=== PATIENT | female | born 1965 | race Caucasian/White ===

== ENCOUNTER 2018-07-07 08:28 | Day surgery (SDC) | payer OTHER, SELFPAY ==
[2018-07-07 08:38] VITALS: BP 111/76; PULSE 58; RESP 14; TEMP 36.3; O2SAT 100; BMI 28.0
--- NOTE | 2018-07-07 09:13 | H&P.OPEN ---
Past Medical/Surgical History - Planned Operation Planned Operative Procedure/s: cscope open access Date of Operative Procedure: 07/07/18 Permit Signed: No S.O.S: No Is This Patient Having a Total Joint: No - Previous Hospitalizations/Surgeries HX Hospitalizations: No HX of Surgeries: VAGINAL DELIVERIES [id number], OOPHORECTOMY 2006OOPHORECTOMY 2008LEFT BREAST BIOPSY 2005BREAST AUGMENTATION 2007LEFT SAPHENOUS VEIN STRIPPED 1988. MICROFRACTURE SURGERY LEFT KNEE 11/16 (DR. EDWARDS). left knee patellar revision 2014. laser gum surgery 2016,2017 Any Problems With Anesthesia: Yes - NAUSEA You/Your Family Experience Fever (Hyperthermia) With Anes: No Cholinesterase deficiency: No - Cardiovascular Hx Chest Pain within Last 2 months: No Hx of Irregular Heartbeat and/or Afib: No Hx Heart Attack: No Hx Congestive Heart Failure: No Hx Rheumatic Fever: No Hx Hypertension: No Hx Internal Defibrillator: No Hx Pacemaker: No Hx Cardiac Catheterization: No Hx Cardiac Surgery/Stents/Etc.: No Hx Stress Test: Yes - ECHO 2011. NEG HX Edema: No Hx Pain in Legs when Walking/Leg Cramps: No - . - Respiratory Chronic Cough: No HX of Shortness of Breath: No Hoarseness: No Hx Chronic Obstructive Pulmonary Disease (COPD): No Hx Asthma: No Hx Emphysema: No Hx Sleep Apnea: No CPAP: No BIPAP: No Hx Oxygen Use at Home: No Hx Respiratory Tract Infection/Cold (presently): No Do You Snore Loudly (louder than talking or can be heard): No Do You Often Feel Tired/ Fatigued/ Sleepy Dring Daytime?: No Has Anyone Observed You Stop Breathing During Sleep?: No Result (for STOP score): Negative Hx Smoking: No Smoking Status: Never smoker - Gastrointestinal Hx Gastroesophageal Reflux: No Hx Gastrointestinal Disorders: No Hx Gastrointestinal Bleed: No Hx Ulcer: No Hx Hiatal Hernia: No Difficulty Chewing/Swallowing: No Special diet followed at home: No Hx Unplanned Weight Loss of 20#: No HX Unplanned Weight Gain of 20#: No - Neurological Hx Seizures: No HX Syncope/Blackout Spells/Unconsciousness: No Hx CVA/Stroke: No Hx Transient Ischemic Attacks (TIA): No Hx Multiple Sclerosis: No Hx Parkinson's Disease: No Hx Head/Neck Injury: No Hx Headaches: No Hx Back Injury/Pain: No Recent Onset of Speech Difficulty: No Restless Legs: No Does patient have nerve stimulator: No - Blood Disorder Hx Leukemia: No Bleeding Tendencies: No Hx Deep Vein Thrombosis: No Hx High Cholesterol: No Blood Transmitted Disease: No Hx Hepatitis: No Hx Cirrhosis: No Hx Anemia: No Hx Blood Disorders: No - Reproduction Is Patient Lactating: No Hx Hysterectomy: Yes Hx Tubal Ligation: No Are You Post Menopause: No - Genitourinary Hx Renal Disease: No - Musculoskeletal Hx Arthritis: Yes - KNEE Hx Rheumatoid Arthritis: No Hx Gout: No Recent Onset of an Orthopedic Problem: No - . - Endocrine Hx Diabetes: No Thyroid Disease: No Hx Steroid Therapy: No - Psycho/Social Hx Substance Use: No Hx Alcohol Use: Yes - social Hx Anxiety: No Hx Depression: No Mental Illness: No Hx Dementia: No - Miscellaneous Hx Cancer: No Recent Exposure to Contagious Disease: No Active MRSA: No Hx of C-Diff: No Any Loose Teeth: No Allergies Sulfa (Sulfonamide Antibiotics) Allergy (Verified 09/29/15 11:20) Rash - Discharge Is Pt Admitted From a Long-Term, or a Senior Living: No Who Could Help: family After D/C, Where Do you Plan to Go: Return Home - Physical Exam General: Alert, Oriented x3, Cooperative Lungs: Normal air movement Cardiovascular: Regular rate, Regular Rhythm Abdomen: Soft, Non Tender, Non-Distended Vital Signs Temp Pulse Resp BP Pulse Ox 97.4 F L 58 L 14 111/76 100 07/07/18 08:38 07/07/18 08:38 07/07/18 08:38 07/07/18 08:38 07/07/18 08:38 Oxygen Delivery Method Room Air Weight: 201 lb 8.04 oz Body Mass Index (BMI) 28.0 Assessment/Plan 53-year-old female for screening colonoscopy 1. Patient reports she has never had a colonoscopy in the past. She has no family history of colon cancer. She is not having any abdominal pain or blood in her stool. 2. I explained endoscopy in detail to the patient. I explained the risks including but not limited to stroke or heart attack with anesthesia, perforation of the GI tract, bleeding, infection. I explained that any of these could necessitate further emergency surgery. The patient understands and all questions were answered sufficiently. The patient wishes to proceed with procedure. Dashawn Garcia MD Pager: [facility] [address] [place] [address], [address] [place] [address] Office: Surgery Risks - Colonoscopy Risks Include but are not Limited To: Risks include but are not limited to: Bleeding, perforation requiring further surgery, inability to complete colonoscopy requiring barium enema.
[2018-07-07 09:48] VITALS: BP 111/76; BP 88/56; PULSE 75; RESP 16; TEMP 36; O2SAT 100
[2018-07-07 09:50] VITALS: BP 101/62; BP 111/76; PULSE 76; RESP 16; O2SAT 100
--- NOTE | 2018-07-07 09:51 | OP.ENDO_ITS ---
Patient Name: Stacy Mclaughlin Procedure Date: 07/07/2018 9:15 AM Date of : 1965 Age: 53 Procedure: Colonoscopy Indications: Screening for colorectal malignant neoplasm Providers: Dashawn Garcia MD Medicines: Monitored Anesthesia Care Patient Profile: Last Colonoscopy: none. The patient's first colonoscopy is today. Complications: No immediate complications. Procedure: Pre-Anesthesia Assessment: - Prior to the procedure, a History and Physical was performed, and patient medications and allergies were reviewed. The patient's tolerance of previous anesthesia was also reviewed. The risks and benefits of the procedure and the sedation options and risks were discussed with the patient. All questions were answered, and informed consent was obtained. Prior Anticoagulants: The patient has taken no previous anticoagulant or antiplatelet agents. After reviewing the risks and benefits, the patient was deemed in satisfactory condition to undergo the procedure. After I obtained informed consent, the scope was passed under direct vision. Throughout the procedure, the patient's blood pressure, pulse, and oxygen saturations were monitored continuously. The colonoscope was introduced through the anus and advanced to the terminal ileum, with identification of the appendiceal orifice and IC valve. The colonoscopy was performed without difficulty. The patient tolerated the procedure well. The quality of the bowel preparation was good. Scope In: 9:25:27 AM Scope Withdrawal Time 0 hours 8 minutes 9 seconds Scope Out: 9:42:08 AM Total Procedure Duration Time 0 hours 16 minutes 41 seconds Findings: The entire examined colon appeared normal on direct and retroflexion views. Impression: - The entire examined colon is normal on direct and retroflexion views. - No specimens collected. Recommendation: - Discharge patient to home. - Resume previous diet. - Continue present medications. - Repeat colonoscopy in 10 years for screening purposes. Procedure Code(s): --- Professional --- 43325, PT, Colonoscopy, flexible; diagnostic, including collection of specimen(s) by brushing or washing, when performed (separate procedure) Diagnosis Code(s): --- Professional --- Z12.11, Encounter for screening for malignant neoplasm of colon CPT copyright 2017 [employer]. All rights reserved. The codes documented in this report are preliminary and upon caseworker review may be revised to meet current compliance requirements. Dashawn Garcia MD 07/07/2018 9:50:48 AM This report has been signed electronically. Number of Addenda: 0 Note Initiated On: 07/07/2018 9:15 AM
[2018-07-07 09:55] VITALS: BP 111/76; BP 97/66; PULSE 75; RESP 16; O2SAT 100
[2018-07-07 09:57] VITALS: BP 101/63; BP 111/76; PULSE 69; RESP 16; TEMP 36.3; O2SAT 100
[2018-07-07 10:30] VITALS: BP 111/76
== END 2018-07-07 10:34 | disposition home or self-care (01) ==
LOC: EN 08:30 → AC 08:31
PROVIDERS: Family Provider Family Medicine; PCP Family Medicine; Visit Provider Surgery
PROC: 0DJD8ZZ Inspection of Lower Intestinal Tract, Via Natural or Artificial Opening Endoscopic (ICD-10-PCS; CPT 45378; principal; 2018-07-07 09:25)
DX: Z12.11 Encounter for screening for malignant neoplasm of colon (principal); M17.10 Unilateral primary osteoarthritis, unspecified knee
CPT/HCPCS: 45378; J7120

== ENCOUNTER → 2019-01-02 09:42 | Outpatient (CLI) | payer OTHER, SELFPAY ==
[2018-12-27 11:02] VITALS: BMI 27.1
--- NOTE | 2019-01-02 09:43 | BD_ITS ---
STUDY: DUAL ENERGY X-RAY ABSORPTIOMETRY / DXA REASON FOR EXAM: Female, 53 years old. Early menopause. Loss of height. TECHNIQUE: Bone Mineral Density (BMD) measurements of lumbar spine and bilateral hips were obtained. COMPARISON: None. FINDINGS: Lumbar Spine (L1-L4): g/cm2 (1.078) / T-score (-0.7) / Z-score (0.0) Findings are suggestive of normal bone density with a low fracture risk. Left Femur Total: g/cm2 (0.907) / T-score (-0.8) / Z-score (-0.2) Left Femoral Neck: g/cm2 (0.916) / T-score (-0.9) / Z-score (0.1) Right Femur Total: g/cm2 (0.884) / T-score (-1.0) / Z-score (0.4) Right Femoral Neck: g/cm2 (0.894) / T-score (-1.0) / Z-score (-0.1) BD/Dexa Bone Density Study IMPRESSION: The patient is considered normal as outlined below according to World [place] Organization (WHO) criteria with a low fracture risk. Reference Information: The T-score is the number of standard deviations above or below the standard which is normal for young adults at their peak bone mineral density. The World Health Organization (WHO) interprets the T-scores as follows: Above -1 Normal bone density Between -1 and -2.5 Osteopenia Equal to / or below -2.5 Osteoporosis As a practical clinical guideline, osteopenia may be graded as follows: Mild -1 through -1.5 Moderate -1.6 through -2.0 Severe -2.1 through -2.4 The Z-score is the number of standard deviations above or below age-matched controls. A Z-score of less than -1.5 would be considered abnormal. References: 1. NIH Osteoporosis and Related Bone Diseases http://www.osteo.org 2. International Society for Clinical Densitometry http://www.iscd.org 3. National Osteoporosis Foundation http://www.nof.org Electronically Signed: Tyler Phillips, at 15:26 EDT , Service support ,
--- NOTE | 2019-01-02 10:17 | RAD_ITS ---
STUDY: X-RAY - LEFT HAND, ATTENTION INDEX FINGER REASON FOR EXAM: Mucous cyst/ganglion at distal interphalangeal joint, pain for 2 months. TECHNIQUE: 3 view(s) of the finger were obtained. COMPARISON: None. FINDINGS: Normal metacarpal head. Normal metacarpophalangeal joint. Normal proximal phalanx. Normal middle phalanx. Normal distal phalanx. There are very small marginal osteophytes of the proximal interphalangeal without joint space narrowing. There are very small marginal osteophytes without joint space narrowing of the distal interphalangeal joint. There is a small pericapsular calcification at the ulnar aspect of the proximal interphalangeal joint. RAD/Finger(s) Min 2 Views IMPRESSION: Very small marginal osteophytes of the proximal and distal interphalangeal joints. Small pericapsular calcification of the proximal interphalangeal joint. Electronically Signed: Nura Gaines MD at 12:30 EDT Tel , Service support ,
== END ==
PROVIDERS: Family Provider Family Medicine; PCP Family Medicine; Referring Provider Family Medicine; Visit Provider Family Medicine
DX: Z13.820 Encounter for screening for osteoporosis (principal); M67.442 Ganglion, left hand
CPT/HCPCS: 73140; 77080

== ENCOUNTER → 2019-01-22 | Outpatient (CLI) | payer OTHER, SELFPAY ==
[2018-12-27 11:02] VITALS: BMI 27.1
--- NOTE | 2019-01-22 15:42 | BI_ITS ---
MAMMOGRAPHY - BILATERAL SCREENING 3-D TOMOSYNTHESIS REASON FOR EXAM: Female, 53 years old. Bilateral Screening 3-D tomosynthesis PERTINENT HISTORY: No significant family history. TECHNIQUE: 2-D mammograms and 3-D Tomosynthesis of the breast (s) were performed. CAD was performed. COMPARISON: November 18, 2015. FINDINGS: The breast composition is composed of scattered fibroglandular density. The bilateral prosthesis envelopes appear intact. Scattered benign calcifications are seen. No dense spiculated masses or suspicious microcalcifications are identified. No architectural distortion is identified. There is no skin thickening or retraction. There has been no significant change since the prior study. BI/SCREENING MAMM (CAD), BILAT IMPRESSION: No mammographic signs of malignancy. Routine yearly mammograms recommended. ASSESSMENT CATEGORY: BIRADS Category 2: Benign. A letter regarding these results will be sent to the patient by the facility within 30 days. FOLLOW UP RECOMMENDATION: Yearly follow up mammogram recommended. (A) Approximately 10% of breast cancers are not detected by mammography. A normal mammogram should not delay biopsy of a clinically suspicious abnormality. Electronically Signed: Wilfrid Barrientos MD at 17:01 EDT , Service support ,
== END | disposition home or self-care (01) ==
LOC: OPBI 15:41
PROVIDERS: Family Provider Family Medicine; PCP Family Medicine; Referring Provider Family Medicine; Visit Provider Family Medicine
DX: Z12.31 Encounter for screening mammogram for malignant neoplasm of breast (principal)
CPT/HCPCS: 77063; 77067

== ENCOUNTER 2019-04-03 05:53 | Day surgery (SDC) | payer OTHER, SELFPAY ==
[2018-12-27 11:02] VITALS: BMI 27.1
--- NOTE | 2019-04-02 22:06 | PCM.HP.BLA ---
History and Physical Date of Admission: 04/03/19 HISTORY OF PRESENT ILLNESS 53 year old woman presents with a soft tissue mass on the dorsal ulnar aspect left index finger at the DIP joint that has been increasing in size over the last year. She denies any trauma. She denies any infection. She denies any drainage. She denies any numbness. She denies any nail deformity. The mass is clinically consistent with a mucous cyst. She has no trouble with activities of daily living. She is right hand dominant. She also has a concern about a pigmented lesion on the volar aspect mid right forearm that has also increased in size. She denies any trauma. She denies any bleeding. She states she has a family history of skin cancer. She presents at this time for further evaluation and treatment. PAST MEDICAL HISTORY Breast lump Osteoarthritis PAST SURGICAL HISTORY breast augmentation breast biopsy hysterectomy vein stripping Knee fracture, left ALLERGIES Sulfa (Sulfonamide Antibiotics) MEDICATIONS ibuprofen multivitamin tablet FAMILY HISTORY Mother - Breast cancer, Melanoma, Skin cancer Sister - Breast cancer Grandmother - Breast cancer Brother - Glioblastoma SOCIAL HISTORY Smoking Status: Never smoker alcohol intake: never substance use type: does not use REVIEW OF SYSTEMS General - Denies fever, fatigue, and weight loss. Eyes - Denies cataracts and glaucoma. ENT - Denies nasal congestion and sore throat. Endocrine - Denies excessive thirst and urination. Skin - Denies skin cancer. Has an enlarging mucous cyst dorsal ulnar aspect left index finger at the DIP joint. Has a pigmented lesion volar aspect mid right forearm. Musculoskeletal - Has joint pain, joint stiffness, weakness of muscles and joints, and arthritis. Denies back pain. Neuro - Denies headaches. Cardiovascular - Denies chest pain, fatigue, and shortness of breath with exertion. Psych - Denies anxiety and depression. Respiratory - Denies chronic cough and shortness of breath. Gastrointestinal - Denies nausea, vomiting, diarrhea, and constipation. Hematologic - Denies abnormal bruising and bleeding. Genitourinary - Denies hematuria and urinary frequency. PHYSICAL EXAMINATION General - Alert and Oriented. HEENT - PERRL. EOMI. Throat is clear. No suspicious lesions noted. Neck - Supple and nontender. No cervical adenopathy. No suspicious lesions noted. Lungs - Clear to auscultation. Heart - Regular rate and rhythm. Abdomen - Soft and nondistended. Extremities - FROM. No axillary adenopathy. Radial pulses are palpable. On the dorsal ulnar aspect left index finger at the DIP joint is a soft tissue mass consistent with a mucous cyst. Measures 5 mm. The overlying skin is thinned. No ulceration. No sensory deficits. No nail deformity. Patient can make a fist. Finger extension is intact. Fingers are warm with good capillary refill. On the volar aspect mid right forearm is a 4 mm pigmented lesion. Has various areas of different coloration. Lesion is flat. Has irregular borders. No ulceration. Lesion is nontender. Neuro - CN II-XII grossly intact. Psych - Normal mood and affect. ASSESSMENT 1. 5 mm mucous cyst dorsal ulnar aspect left index finger at the DIP joint. 2. 4 mm pigmented lesion volar aspect mid right forearm. 3. Family history of skin cancer. PLAN Recommend excision of this mucous cyst dorsal ulnar aspect left index finger at the DIP joint. Will send the mass to Pathology for analysis to rule out carcinoma. The x-ray showed very small marginal osteophytes of the proximal and distal interphalangeal joints. Small pericapsular calcification of the proximal interphalangeal joint. At the time of surgery, will remove any bony spurs to minimize recurrence. Also will look underneath the tendon and even on the radial side as well as these masses can wrap around the tendon. May have to splint the finger postop during the healing process to minimize problems with the tendon during healing. By manipulating the tendon to completely remove the mucous cyst, the tendon will be weakened by swelling and inflammation. Since the overlying skin is adherent to the mass and is thinned out, I will remove the overlying skin with the mass. Therefore, with bone and tendon exposed, a skin graft cannot be used for closure. So will close the defect with a dorsal advancement skin flap. Compression dressing will be applied to help with the swelling postop and to help with splinting during the first week. Surgery will be done under local anesthesia and IV sedation with a digital tourniquet. The pigmented lesion on her volar aspect mid right forearm has developed changes in pigmentation and has developed irregular broders. I recommend excision and send the lesion to pathology for analysis to rule out carcinoma. Patient was informed of the risks and complications of the procedure including alternatives to surgery. These were discussed with the patient personally. Patient voices understanding and wishes to proceed. Some of the risks and complications were included in a form from the [employer]. Some of the risks and complications that were discussed included but were not inclusive of failure to diagnose including symptom relief, pain, infection, numbness, stiffness, loss of digit, RSD (CRPS), need for further surgery, contracture, and wound healing problems.
[2019-04-03] VITALS (11 sets, daily range): BP systolic 108–122; BP diastolic 70–86; PULSE 59–78; RESP 15–16; TEMP 36.7; O2SAT 97–100; BMI 28.3
--- NOTE | 2019-04-03 | CYST_PTH ---
PATIENT: GERALDO MIJARES [place] [facility] [place][id number] AGE/SX: 54/F ROOM: RE04/03/[address]: Dr. Amol Holt MD : 1965 BED: DIS: 04/03/2019 SPEC #: [id number] RECD: 04/03/19 14:00 STATUS: THIEN ARELI #: [id number] OREN: 04/03/19 00:[address]: Amol Holt DEPT: SURGICAL PATHOLOGY RECD BY: Billy Everett ENTERED: 04/03/19 14:00 SP TYPE: Cyst OTHR DR: Dr. Mode Ramirez, DO Tissues: A - CYST B - Skin of arm Procedures: Surgery Specimen Level IV HEADER OPERATION: Excision mucous cyst, index finger at DIP joint, skin flap PRE-OP DIAGNOSIS: 5 mm mucous cyst dorsal ulnar aspect left index finger at DIP joint; 4 mm pigmented lesion volar aspect mid right forearm TISSUE SUBMITTED: A - Mucous cyst dorsal ulnar aspect left index finger at DIP joint, B - Pigmented lesion volar aspect mid right forearm MICROSCOPIC DIAGNOSIS A. Mucous cyst dorsal ulnar aspect left index finger at DIP joint: Pieces of skin with hyperkeratosis and focal minimal changes suggestive of mucous cyst. Fragments of bone, cartilage, fibroconnective tissue and synovial tissue with reactive changes B. Pigmented lesion volar aspect mid right forearm, excisional biopsy: Early junctional nevus arising in the background of lentigo. Dermal melanophages. SJ:angel 04/04/19 COMMENT Case has been reviewed in consultation with Dr. Lamb who concurs with the above diagnosis. IDC:AM MICROSCOPIC DESCRIPTION Slides are reviewed. GROSS DESCRIPTION A - Received in fixative is one container labeled with the patient's name and designated mucous cyst dorsal ulnar aspect left index finger at DIP joint. The specimen consists of multiple irregular fragments of light dunaway soft tissue that in aggregate measure 1.5 x 1 x 0.2 cm. Also present in the container is a piece of skin measuring 1 x 0.5 x 0.2 cm. The skin piece is bisected. The entire specimen is submitted in one cassette. B - Received in fixative is one container labeled with the patient's name and designated pigmented lesion volar aspect mid right forearm. The specimen consists of a dunaway-white skin ellipse measuring 1 x 0.5 cm and up to 0.1 cm in thickness. The specimen shows a suture at one tip. The suture half is inked blue and opposite half is inked black. The specimen will be serially sectioned at the time of embedding. / NERY:angel 04/03/19 TC:5 CPT: 94437 x2
[2019-04-03] MEDS: Cefazolin 2 GM in 0.9% Normal Saline 100 ML IV (07:25)
[2019-04-03] MEDS: Mupirocin Ointment 22gm Tube 1 APPLIC (08:45)
--- NOTE | 2019-04-03 09:02 | OP.PCM_ITS ---
Report of Operation Date of Procedure: 04/03/19 Pre-Operative Diagnosis: 1. 5 mm mucous cyst dorsal ulnar aspect left index finger at the DIP joint. 2. 4 mm pigmented lesion volar aspect mid right forearm. 3. Family history of skin cancer. Post-Operative Diagnosis: Same. Surgery/Procedure Performed:: 1. Excision 5 mm mucous cyst dorsal ulnar aspect left index finger at the DIP joint with dorsal skin advancement flap reconstruction (6 cm2). 2. Excision 4 mm pigmented lesion volar aspect mid right forearm with 2 cm layered closure. Description of Surgical Findings:: 53 year old woman presents with a soft tissue mass on the dorsal ulnar aspect left index finger at the DIP joint that has been increasing in size over the last year. She denies any trauma. She denies any infection. She denies any drainage. She denies any numbness. She denies any nail deformity. The mass is clinically consistent with a mucous cyst. She has no trouble with activities of daily living. She is right hand dominant. She also has a concern about a pigmented lesion on the volar aspect mid right forearm that has also increased in size. She denies any trauma. She denies any bleeding. She states she has a family history of skin cancer. Patient was informed of the risks and complications of the procedure including alternatives to surgery. These were discussed with the patient personally. Patient voices understanding and wishes to proceed. Some of the risks and complications were included in a form from the [employer]. Total tourniquet time - 42 minutes. family health nurse practitioner: None Type of Anesthesia:: Local MAC - xylocaine with epinephrine and IV sedation. Specimen's removed: 1. Mucous cyst dorsal ulnar aspect left index finger at the DIP joint to Pathology. 2. Pigmented lesion volar aspect mid right forearm to Pathology. Drains: None. Estimated Blood Loss (mL): 5 ml. Description of Procedure: Patient was taken to OR in supine position and was given IV sedation. The left hand was prepped and draped in the usual fashion. SCD's were placed for DVT pr ophylaxis. Perioperative antibiotics were given intravenously. The left index finger was infiltrated with xylocaine and epinephrine digital metacarpal block for postop pain relief. After waiting 5 minutes for the anesthetic to take effect, I placed a digital tourniquet on the left index finger. Under loupe magnification, I made an incision over the mucous cyst. The skin was adherent. A circular incision was made over the cyst and it was extended horizontally to the radial side of the finger. I dissected down to the extensor tendon which was intact. The mucous cyst extended to the bone at the DIP joint. There was extension of the mucous cyst underneath the extensor tendon to the radial side. Once the mucous cyst was excised, there was osteophytes at the DIP joint. Using a rongeur, I excised the osteophytic spurs on both the ulnar side and the radial side of the DIP joint. The cyst and the bone was sent to Pathology for analysis to rule out carcinoma. Because the wound extended down to the bone and tendon, a skin graft cannot be used. Therefore I made markings down the ulnar side of the finger past the PIP joint. Incisions were made and dissection was carried down to the extensor tendon. I was able to advance the dorsal skin flap into the defect with minimal tension and minimal distortion. The wound was irrigated with saline. The tourniquet was released after 42 minutes. Hemostasis was obtained with electrocautery. No vascular compromise was noted on the skin flap. I then closed the dorsal skin flap in a layered fashion with 5-0 Monocryl interrupted sutures for the deep dermis and subcutaneous tissue. The skin was approximated with 5-0 Nylon simple interrupted sutures. Antibiotic ointment was applied to the suture line followed by Xeroform gauze and 2x2 gauze followed by a 2 inch Chuy wrap. I then prepped and draped the right volar forearm in the usual fashion. Using xylocaine and epinephrine, the pigmented lesion on the volar aspect mid right forearm was infiltrated. After waiting 5 minutes for the anesthetic to take effect, I excised the pigmented lesion in a longitudinal elliptical fashion down into the subcutaneous tissue. I excised the lesion with a 1 mm margin in all directions thus making it a 6 mm excision and a 2 cm layered closure. A suture was marked at the 12 oclock position for pathology orientation. The lesion was sent to pathology for analysis to rule out carcinoma. Hemostasis was obtained with electrocautery. The wound was closed in a layered fashion with 5-0 Monocryl interrupted sutures for the deep dermis and subcutaneous tissue. The skin was approximated with 5-0 Nylon simple interrupted sutures. Antibiotic ointment was applied to the suture line followed by 2x2 gauze and a compression inocente wrap. Patient tolerated the procedure well and was sent to PACU in satisfactory condition. Patient will be sent home on antibiotics and pain medication. She will keep her arms elevated when sitting. Patient will followup in a week for a wound check and for discussion of the pathology report. Will remove the sutures from the right forearm in a week and the left index finger in 2 weeks. After sutures removed, if she develops some stiffness in the left index finger, she may need OT for range of motion exercises. Grafts/Implants Used: None. - Complications None. - Admit VTE Documentation VTE Present on Admission: No VTE Mechan Device Prophylaxis: SCD's VTE Pharm Prophylaxis ordered?: No Code Visit Surgery Charges CPT - 22012 ICD-10 - M67.442, Z80.8 69593 M67.442, Z80.8 58843 D49.2, Z80.8 58059 D49.2, Z80.8
--- NOTE | 2019-04-03 09:12 | DCINST_ITS ---
You will use the following diet at home:: No restrictions Discharge Activity: May not drive while taking narcotic pain medications., May Shower - in two days. Wear plastic bag over left hand when showering., - - elevate left hand. no heavy lifting left hand. Return to work on:: 06/03/19 - tentative May shower in (days): 2 - wear plastic bag over left hand when showering. May resume sexual activity in: No Restrictions Weight Bearing Status: Weight bearing as tolerated Lifting Restrictions: 10 lbs. Keep extremity elevated above heart level: Left Arm Call your doctor if your incision/area has: Continuous Slow Oozing, Sudden Increased Bleeding, Increased Pain/ Swelling, Increased Redness, Foul Smelling Discharge, Swelling at the incision site Call your doctor if you observe: Fever of 101 or Higher, Coldness, Increased Pain, Shortness of breath, Chest pain, Calf discomfort, Uncontrolled pain Suture Line Care: - - after dressings removed, apply antibiotic ointment to suture line daily. Change Dressing in (Days):: 7 - left hand in office. Remove Dressing in (days):: 2 - right forearm. Cleanse incision/area with: - - may shower in two days. wear plastic bag over left hand when showering. Allergies/Adverse Reactions: Allergies Sulfa (Sulfonamide Antibiotics) Allergy (Verified 04/03/19 06:13) Rash Medications to take at Discharge multivitamin tablet 1 tab PO DAILY 12/27/18 Cefadroxil [Duricef] 500 mg PO BID #10 cap 04/03/19 Lactobacillus Acidophilus/Fos [Acidophilus Probiotic Tablet] 1 ea PO BID #10 tab 04/03/19 Oxycodone HCl/Acetaminophen [Percocet 5/325] 1 tab PO Q4H PRN PRN 7 Days #40 tab 04/03/19 The following prescriptions were given: Lactobacillus Acidophilus/Fos [Acidophilus Probiotic Tablet] 1 ea PO BID #10 tab Prescription Printed Cefadroxil [Duricef] 500 mg PO BID #10 cap Prescription Printed Oxycodone HCl/Acetaminophen [Percocet 5/325] 1 tab PO Q4H PRN PRN 7 Days #40 tab PRN Reason: Pain Prescription Printed Primary Care Physician: Mode Ramirez DO [Primary Care Provider] - Test Results: Test results from this visit will be discussed in further detail at your follow- up appointment, if applicable. Please Follow Up With: Amol Holt MD When: one week. call [phone] for appt. Proposed Discharge Date: 04/03/19
== END 2019-04-03 11:26 | disposition home or self-care (01) ==
LOC: SDC 05:53 → AC 05:54
PROVIDERS: Family Provider Family Medicine; PCP Family Medicine; Referring Provider Surgery; Visit Provider Surgery
PROC: (CPT 11400; principal; 2019-04-03 07:20)
DX: D22.61 Melanocytic nevi of right upper limb, including shoulder (principal); M25.842 Other specified joint disorders, left hand; L81.4 Other melanin hyperpigmentation; Z80.8 Family history of malignant neoplasm of other organs or systems; M19.90 Unspecified osteoarthritis, unspecified site; L85.9 Epidermal thickening, unspecified; L81.8 Other specified disorders of pigmentation; M25.742 Osteophyte, left hand
CPT/HCPCS: 11400; 12031; 14020; 26160; 88304; 88305; J7120; J2405

== ENCOUNTER 2019-07-30 16:30 | Outpatient (RCR) | payer OTHER, SELFPAY ==
[2019-05-17 16:47] VITALS: BMI 28.3
--- NOTE | 2019-05-25 11:04 | HP.OTEVAL_ITS ---
Patient's Visit Information GERALDO MIJARES is a 54 year old F, referred to Occupational Therapy by Amol Holt MD, with a diagnosis of left IF ganglion cyst. Date of Evaluation: 05/25/19 Occupational Therapist: SANYA Eubanks/Mariya, CHT - Subjective Subjective: This 54 year old female was seen for OT eval with dx of left IF gangllion cyst. pt underwent sx on April 03, 2019 for removal. Pt states she has noticed limited strength and inability to make a tight fist. - ADLs Fasteners: Snaps Eating: Drink from glass Kitchen: Open jars, Open bottle caps Miscellaneous: Open medication bottle, Use hand tools, Do crafts Comments: pt states hand feels weak when lifting items as a coffee cup. 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 with ADLs and IADLS by d/c Goal:: pt will demo the ability to form a composite fist to manipulate fastenders ind without dropping, hold cup ind, and manipulate coins at PLOF by D/C Goal:: pt will report pain no greater than 1/10 with use of left hand with ADLS and IADLs by d/c Goal:: pt will demo understanding of scar mtg by end of 1st session to decrease scar adhesions by end of 1st session Goal:: pt will demo ind. donning/doffing of custom orthosis by end of 1st session, and knowledge to return to clinic for orthosis adj. if needed by end of 1st session . - Rehabilitation General Assessment: Digital mucous cyst of finger of left hand. S/P 7 weeks (04/03/19 DOS) where she underwent excision 5 mm mucous cyst dorsal ulnar aspect left index finger at the DIP joint. 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 Due to pts current deficits with ROM and strength pt is limited with daily occupations at this time. Pt would benefit from skilled OT services 2-4 visits to assist pt with returning to her PLOF with ADLS and IADLS. Today therpist maria isabel. custom stack orthosis placing left IF in hyperextensoin- pt ed. to wear at night and to return if orthosis needs adj. therpist also ed. pt on scar mtg to decrease scar adhesions and hook fist to gain left IF PIP flex. pt demo understanding and agree to POC. Rehabilitation Potential: Good - Anticipated Interventions Anticipated Interventions: A/AAROM/PROM, Strengthening, Scar Care, Triggerpoint Release, Desensitization, Modalities, Orthoses, Joint Protection/Energy Conservation, Ergonomic Education, Fine Motor Coord/Roger, Home Program - Visit Plan Frequency: Every Other Week Duration: 4-6 Weeks TEXT: Thank you for the opportunity to evaluate your patient. For Medicare and Medicare HMO plans, please review the plan of care and approve it. It will need to be FAXED BACK to us at [phone] for Medicare purposes. Please let me know if there are questions or concerns regarding this plan of care. Physician Signature: Date:
--- NOTE | 2019-10-17 10:29 | HP.OT.NRP ---
HP - Discharge Summary - Patient Information GERALDO MIJARES was seen in my office for initial evaluation on 05/25/19. The following Plan of Care was established for this patient: Initial Frequency: Every Other Week Initial Duration: 4-6 Weeks Plan: follow up in 4 weeks - Anticipated Interventions Anticipated Interventions: A/AAROM/PROM, Strengthening, Scar Care, Triggerpoint Release, Desensitization, Modalities, Orthoses, Joint Protection/Energy Conservation, Ergonomic Education, Fine Motor Coord/Roger, Home Program This patient was last seen in our office 07/30/19. Pertinent comments regarding their Occupational therapy will appear below: Pt was seen for 3 OT visits- pt struggling with DIP lag from ganglion cyst sx. pt was ed. in orthosis use to decrease ext. lag- pt was to return in 4 weeks following last scheduled apt. pt has not scheduled and due to time lapse in care pt d/c. At this point I will be discontinuing this patient from occupational therapy. I would be happy to see this patient again in the future if found appropriate by the physician. Thank you! [place]ia Wolf, OTR/L, CHT
== END 2019-07-30 19:00 | disposition home or self-care (01) ==
LOC: OT 16:30
PROVIDERS: Family Provider Family Medicine; PCP Family Medicine; Referring Provider Surgery; Visit Provider Surgery
DX: M67.442 Ganglion, left hand (principal)
CPT/HCPCS: 97110; 97140; 97166; 97530; 97760; 97763

== ENCOUNTER → 2019-08-08 10:30 | Outpatient (CLI) | payer OTHER, SELFPAY ==
[2019-05-17 16:47] VITALS: BMI 28.3
--- NOTE | 2019-08-08 10:33 | RAD_ITS ---
STUDY: X-RAY - LUMBAR SPINE REASON FOR EXAM: Female, 54 years old. Low back pain radiating down left lower extremity TECHNIQUE: 5 view(s) of the lumbar spine were obtained. COMPARISON: Prior study of November 26, 2014 FINDINGS: Normal lumbar lordosis. There is no substantial scoliosis. There is a normal alignment of the vertebrae. There is mild endplate spondylosis of the lumbar vertebrae. Normal disc space heights. There is no demonstrated fracture. There is no demonstrated spondylolysis of the pars interarticulares. The soft tissue structures are unremarkable. RAD/L/S Spine Min 4 Views IMPRESSION: Mild degenerative changes. There is no evidence of fracture, spondylolysis, or spondylolisthesis. Findings are similar to the previous study. Electronically Signed: Hilario Islas MD at 17:08 EST , Service support ,
== END ==
PROVIDERS: Family Provider Family Medicine; PCP Family Medicine; Referring Provider Family Medicine; Visit Provider Family Medicine
DX: M54.17 Radiculopathy, lumbosacral region (principal)
CPT/HCPCS: 72110

== ENCOUNTER → 2019-08-28 07:31 | Outpatient (CLI) | payer OTHER, SELFPAY ==
[2019-08-22 16:23] VITALS: BMI 28.3
[2019-08-28 08:53] LABS: Absolute Lymphocyte Count 0.95 X10^3/uL (0.83-4.51); Absolute Neutrophil Count 2.4 X10^3/uL (2.0-7.7); Basophil# 0.02 X10^3/uL; Basophil% 0.5 % (0-1); Eosinophil# 0.12 X10^3/uL; Eosinophils% 3.1 % (0-5); Hematocrit 43.8 % (37-47); Hemoglobin 14.1 g/dL (12.0-15.0); Lymphocyte # 0.95 X10^3/ul (4.0); Lymphocyte % 24.9 % (19-41); Mean Corp Hgb Conc 32.2 g/dL (32-36); Mean Corpuscular Hgb 30.2 pg (27.0-32.0); Mean Corpuscular Volume 93.8 fL (81-99); Mean Platelet Vol. 10.3 fl (6.2-12.0); Monocyte# 0.36 X10^3/uL; Monocyte% 9.4 % (0-10); NRBC Flagged by Analyzer 0 % (0-5); Neutrophil # 2.36 X10^3/uL (2.7-7.7); Neutrophil % 61.8 % (47-70); Platelet Count 190 K/mm3 (150-450); RBC Distribution Width CV 14.2 % (11.6-14.6); RBC Distribution Width SD 49.3 fl (35.1-43.9); Red Blood Count 4.67 M/mm3 (4.2-5.4); White Blood Count 3.8 K/mm3 (4.4-11.0)
[2019-08-28 09:20] LABS: Vitamin D,25 Hydroxy 15.5 ng/mL (29.95-100.01)
[2019-08-28 09:29] LABS: ALB/GLOB Ratio 1.3 RATIO (0.9-2.4); AST(SGOT) 25 U/L (15-37); Alanine Aminotransfer ALT/SGPT 46 U/L (13-56); Albumin, Serum 4.3 g/dL (3.2-5.0); Alkaline Phosphatase 79 U/L (45-117); Anion Gap 7 (5-15); BUN 14 mg/dL (7-18); BUN/Creat Ratio 19.4 RATIO (10-20); Calcium,Total 9.2 mg/dL (8.5-10.1); Chloride 105 mmol/L (98-107); Cholesterol 217 mg/dL (200); Creatinine, Serum 0.72 mg/dL (0.55-1.02); EST Glomerular Filtration Rate 89 mL/min (>60); Est Glom Filt Rate - Afr Amer 108 mL/min (>60); Free T3 3.3 pg/mL (2.18-3.98); Globulin 3.2 g/dL (2.2-4.2); Glucose 88 mg/dL (74-106); High Density Lipoprotein 108 mg/dL; Iron 91 ug/dL (50-170); Iron Binding Capacity,Total 390 ug/dL (250-450); Potassium 4.1 mmol/L (3.5-5.1); Protein, Total 7.5 g/dL (6.4-8.2); Sodium Level 139 mmol/L (136-145); Thyroid Stim Hormone (TSH) 1.96 uIU/mL (0.358-3.74); Triglycerides 46 mg/dL; Very Low Density Lipoprotein 9 mg/dL (5-40)
[2019-09-03 12:06] LABS: T3 Reverse 15.5 ng/dL (9.2-24.1); Thyroglobulin Antibody 2.8 IU/mL (0.0-0.9); Thyroid Peroxidase AB 86 IU/mL (0-34)
== END ==
PROVIDERS: Family Provider Family Medicine; PCP Family Medicine
DX: E03.9 Hypothyroidism, unspecified (principal); D64.9 Anemia, unspecified; E44.1 Mild protein-calorie malnutrition; E78.5 Hyperlipidemia, unspecified; E55.9 Vitamin D deficiency, unspecified
CPT/HCPCS: 36415; 80053; 80061; 82306; 83540; 83550; 84439; 84443; 84481; 84482; 85025; 86376; 86800

== ENCOUNTER 2019-09-13 17:00 | Outpatient (RCR) | payer OTHER, SELFPAY ==
[2019-05-17 16:47] VITALS: BMI 28.3
[2019-08-22 16:23] VITALS: BMI 28.3
--- NOTE | 2019-08-23 16:31 | HP.PTEVAL ---
Patient's Visit Information GERALDO MIJARES is a 54 year old F referred to Physical Therapy by Mode Ramirez DO with a diagnosis of LUMBAR RADICULOPATHY. Date of Evaluation: 08/23/19 Physical Therapist: Amol Wells PT, Cert MDT, OCS - Visit Plan Frequency: 2x /Week Duration: 4 Weeks Plan: PT INTERVETIONS INTIALLY NEUTRAL SPINE DLS,ASSESS KENNEDY EX'S,POSTURAL EX'S,DLS - Subjective Findings: This 54 y/o female presenst to physical therapy with sciatica pain left leg . Patient has left lumbar radiculopathy for 2 months. Tried predisone for 10 days then symptoms worse . Then seen DR montejo,gabepetin improved better. Patient worse after stopped MEDS. Patient also seen chiropractor thought piriformis. Aggravating sitting,bending sleeping,driving . Aleviating factors with standing . Location buttuck -hamstring -calf ache.Walkikng NW/NB. Denies parathesia/tingling ,altough left leg feels. Coughing/sneezing -. Bowel/bladder-.Denies parathesia/tingling. Difficulty sleeping. Patient x-rays DDD . 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 Patient h/o trauma. Patient did have h/o sciatica. Patient pain affects QOL and function. 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 SOCIAL: - Pain Left Lower Extremity Pain Intensity (Out of 10): 2 - Objective POSTURE: mild foward posture. GAIT: reciprocal pattern. NEURO: denies parathesia/tingling reflexes 2/3 L3-4,L4-5,L4-S1. SYMMTRIES: align. FLEXABLITY: hams WFL,piriformis WNL. MMT: quads/hams 4/5 ,hip flexion/abd 4/5,GTE 4/5,ankle DF 4/5. LUMBAR ROM: felxion MIN loss ,extension min loss - Special Tests L/S Slump test left side: Positive L/S Slump test right side: Negative L/S Left Straight Leg Raise: Negative L/S Right Straight Leg Raise: Negative Lumbar Standing: Flexion - Mechanical Response: No effect Lumbar Standing: Flexion - Symptoms During Testing: No effect Lumbar Standing: Flexion - Symptoms After Testing: No effect Lumbar Standing: Extension - Mechanical Response: No effect Lumbar Standing: Extension - Symptoms During Testing: No effect Lumbar Standing: Extension - Symptoms After Testing: No effect Lumbar Standing: Right Side Glides - Mechanical Response: No effect Lumbar Standing: Right Side Lynn - Symptoms During Testing: No effect Lumbar Standing: Right Side Lynn - Symptoms After Testing: No effect Lumbar Standing: Left Side Lynn - Mechanical Response: No effect Lumbar Standing: Left Side Lynn - Symptoms During Testing: No effect Lumbar Standing: Left Side Lynn - Symptoms After Testing: No effect Lumbar Lying: Flexion - Mechanical Response: No effect Lumbar Lying: Flexion - Symptoms During Testing: Increases Lumbar Lying: Flexion - Symptoms After Testing: No worse Lumbar Lying: Extension - Mechanical Response: No effect Lumbar Lying: Extension - Symptoms During Testing: Increases Lumbar Lying: Extension - Symptoms After Testing: Worse Comments:: buttuck - Goals Goal 1:: Independant with HEP. Goal Time Frame: 4-6 Weeks Goal 2:: Independant with posture/body mechanics to manage symptoms Goal Time Frame: 4-6 Weeks Goal 3:: Patient to decrease lumbar radiculopathy by 50% or > to improve function. Goal Time Frame: 4-6 Weeks Goal 4:: Patient to improve lumbar ROM for function of recovery Goal Time Frame: 4-6 Weeks Goal 5:: Patient to improve BACK OWESTY score by 5 points or> to improve QOL. Goal Time Frame: 4-6 Weeks Goal 6:: D/C To prophalaxis. Goal Time Frame: 4-6 Weeks - Rehabilitation Potential Physical Therapy Diagnosis: This patient has lumbar radiculpathy with possble disc derrangement with pain with lumbar ROM ,pain in buttuck with repeated motion and movement tests with symptoms slightly worse in buttuck ,pain at night thus benifit from skilled PT. May benifit from MRI if not better. Rehabilitation Potential: Good - Anticipated Interventions Patient/Client Instruction: Educate patient on: Condition, Plan of Care For the Purpose of:: To decrease pain, To increase ROM, To improve muscle performance and motor function, To improve ability to perform ADL's, To increase tolerance to activity/condition/position, To improve ability of physical actions for home/community/work/leisure, To improve health of tissue, To decrease soft tissue restriction, To increase flexibility/ROM, To reduce risk of recurrence, To improve self management, To improve ability to perform tasks related to life management Therapeutic Exercise to Include: Strength training, Power training, Postural training, Flexibilty training, Dynamic Lumbar Stabilization, Kennedy Exercises For the Purpose of:: To decrease pain, To increase ROM, To improve muscle performance and motor function, To improve ability to perform ADL's, To increase tolerance to activity/condition/position, To improve ability of physical actions for home/community/work/leisure, To improve health of tissue, To decrease soft tissue restriction, To increase flexibility/ROM, To improve ability to perform tasks related to life management TENS: Yes IF ES: Yes Cryotherapy (ice pack, ice massage): Yes Thermo therapy (hot pack): Yes Ultrasound (thermal/non thermal): Yes For the Purpose of:: To decrease pain, To increase ROM, To improve health of tissue, To decrease soft tissue restriction Thank you for the opportunity to evaluate your patient. For Medicare and Medicare HMO plans, please review the plan of care and approve it. It will need to be FAXED BACK to us at [phone] for Medicare purposes. For Medicare only, by signing this I certify the plan of care. Please let me know if there are questions or concerns regarding this plan of care. Physician Signature: Date:
--- NOTE | 2020-01-01 11:07 | HP.PT.NRP ---
GERALDO MIJARES was seen in my office for initial evaluation on 08/23/19. The following Plan of Care was established for this patient: Initial Frequency: 2x /Week Initial Duration: 4 Weeks Patient/Client Instruction: Educate patient on: Condition, Plan of Care For the Purpose of:: To decrease pain, To increase ROM, To improve muscle performance and motor function, To improve ability to perform ADL's, To increase tolerance to activity/condition/position, To improve ability of physical actions for home/community/work/leisure, To improve health of tissue, To decrease soft tissue restriction, To increase flexibility/ROM, To reduce risk of recurrence, To improve self management, To improve ability to perform tasks related to life management Therapeutic Exercise to Include: Strength training, Power training, Postural training, Flexibilty training, Dynamic Lumbar Stabilization, Quirino Exercises For the Purpose of:: To decrease pain, To increase ROM, To improve muscle performance and motor function, To improve ability to perform ADL's, To increase tolerance to activity/condition/position, To improve ability of physical actions for home/community/work/leisure, To improve health of tissue, To decrease soft tissue restriction, To increase flexibility/ROM, To improve ability to perform tasks related to life management TENS: Yes IF ES: Yes Cryotherapy (ice pack, ice massage): Yes Thermo therapy (hot pack): Yes Ultrasound (thermal/non thermal): Yes For the Purpose of:: To decrease pain, To increase ROM, To improve health of tissue, To decrease soft tissue restriction This patient was last seen in our office . Pertinent comments regarding their Physical therapy will appear below: Patient seen for PT for lumbar spine ,patient had MRI showed HNP thus d/c At this point I will be discontinuing this patient from physical therapy. I would be happy to see this patient again in the future if found appropriate by the physician. Thank you! Amol Wells, PT, Cert MDT, OCS
== END 2019-09-13 19:00 | disposition home or self-care (01) ==
LOC: PT 17:00
PROVIDERS: Family Provider Family Medicine; PCP Family Medicine; Referring Provider Family Medicine; Visit Provider Family Medicine
DX: M54.30 Sciatica, unspecified side (principal); R20.0 Anesthesia of skin; R20.2 Paresthesia of skin
CPT/HCPCS: 97014; 97035; 97110; 97162; G0283

== ENCOUNTER → 2019-09-14 12:27 | Outpatient (CLI) | payer OTHER, SELFPAY ==
[2019-08-22 16:23] VITALS: BMI 28.3
--- NOTE | 2019-09-14 12:29 | MRI_ITS ---
HISTORY: radiculopathy, SCIATIC PAIN LEFT LEG. Entire left leg and left buttock shooting and sharp pains at times. Throbbing at other times. Minimal back pain that is dull in the lumbar area. Symptoms ongoing for 3 months. Left knee replacement. Right saphenous vein stripping. Hysterectomy. EXAMINATION: MR Spine Lumbar W/O Contrast TECHNIQUE: Multiplanar and multisequence MR images of the lumbar spine. IV Contrast dosage and agent: None. COMPARISON: Comparison x-rays from the lumbar spine are August 08, 2019. 127 images. 5 diagnostic series FINDINGS: VERTEBRAE: Normal vertebral body heights, alignment and lordosis. Marrow signal intensity is normal. No expansile or destructive lesion. CORD: Normal visualized portions of the spinal cord and cauda equina, with the tip of the conus medullaris at the T11-T12 level. No intradural or intramedullary soft tissue mass or epidural fluid collection. SOFT TISSUES: Unremarkable. L1/L2: Loss of disc height, disc desiccation, and disc bulge. Facet arthropathy and ligamentous thickening are minimal. No significant spinal canal stenosis L2/L3: Loss of disc height, disc desiccation and disc bulge. Facet arthropathy, ligamentum thickening, and disc bulge contribute to mild spinal canal stenosis. L3/L4: No significant loss of disc height. Mild disc desiccation. Annular tear with central left paracentral disc protrusion impinging the left L4 nerve in the lateral recess. L4/L5: No significant loss of disc height. Disc desiccation. Annular tear with small central disc protrusion. Facet arthropathy, ligamentum thickening, and a small disc protrusion contribute to mild spinal canal stenosis. The right L5 nerve is close to the small central disc protrusion but without impingement. L5/S1: Loss of disc height, annular tear with small central left paracentral disc protrusion. Mild ligamental thickening. No significant facet arthropathy. Mild spinal canal stenosis. No nerve impingement. MRI/Spine Lumbar (Routine) IMPRESSION: Central left paracentral disc protrusion at the L3-L4 level impinging the left L4 nerve in the lateral recess. Moderate spinal canal stenosis at the L4-L5 level due to annular tear, disc protrusion, facet arthropathy, and ligamental thickening. The disc protrusion abuts the right L5 nerve without perceived impingement or inflammation at 0350 Reported and signed by: Jey Denton MD Electronically Signed: Jey Denton MD at 3:49 EST Tel , Service support ,
== END ==
PROVIDERS: Family Provider Family Medicine; PCP Family Medicine; Referring Provider Family Medicine; Visit Provider Family Medicine
DX: M54.16 Radiculopathy, lumbar region (principal)
CPT/HCPCS: 72148

== ENCOUNTER → 2019-12-11 13:46 | Outpatient (CLI) | payer OTHER, SELFPAY ==
[2019-12-11 13:41] VITALS: BMI 28.3
--- NOTE | 2019-12-11 13:48 | RAD_ITS ---
STUDY: X-RAY - LUMBAR SPINE REASON FOR EXAM: Female, 54 years old. Pain, radiating into left leg TECHNIQUE: 4 view(s) of the lumbar spine were obtained. COMPARISON: 08/08/2019. FINDINGS: Normal lumbar lordosis. There is no substantial scoliosis. There is a normal alignment of the vertebrae. There is mild, multilevel endplate spondylosis of the lumbar vertebrae. There is mild, multi-level degenerative disc disease with multi-level disc space narrowing. There is no demonstrated fracture. No evidence of dynamic instability. The soft tissue structures are unremarkable. RAD/L/S Spine Min 4 Views IMPRESSION: Mild spondylosis/degenerative disease with no acute fracture, spondylolisthesis. No evidence of dynamic instability. Electronically Signed: Krystyna Ortiz MD at 1:09 EDT , Service support ,
== END ==
PROVIDERS: PCP Family Medicine; Referring Provider Orthopaedic Surgery; Visit Provider Orthopaedic Surgery
DX: M79.605 Pain in left leg (principal)
CPT/HCPCS: 72050; 72110

== ENCOUNTER → 2020-06-30 09:29 | Outpatient (CLI) | payer OTHER, SELFPAY ==
[2019-12-11 13:41] VITALS: BMI 28.3
--- NOTE | 2020-06-30 09:31 | BI_ITS ---
MAMMOGRAPHY - BILATERAL SCREENING REASON FOR EXAM: Female, 55 years old. Routine annual screening examination. PERTINENT HISTORY: Sister with breast cancer. Mother with breast cancer. Aunt with breast cancer. Remote left excisional breast biopsy. Remote bilateral breast implants. TECHNIQUE: Digital bilateral breast danae (3D mammographic acquisition) in the CC and MLO projections. 2-D mediolateral oblique (MLO) and craniocaudad (CC) views of both breasts were obtained. CAD: Full Field Digital Mammography with Computer Added Detection was performed. COMPARISON: Comparison is made with prior study dated 01/22/2019 and 01/21/2017. FINDINGS: Breast Composition: There are scattered areas of fibroglandular density. There are no dominant masses or suspicious calcifications. Stable appearance of the bilateral breast implants. No other significant abnormalities are identified. There has been no significant change since the prior study. BI/SCREEN MAMM (CAD) W/DANAE BILAT IMPRESSION: Stable bilateral screening mammogram. Yearly follow-up mammogram recommended. (A) ASSESSMENT CATEGORY: BIRADS Category 2: Benign. A letter regarding these results will be sent to the patient by the facility within 30 days. Approximately 10% of breast cancers are not detected by mammography. A normal mammogram should not delay biopsy of a clinically suspicious abnormality. [id number] Electronically Signed: Tyler Phillips, at 11:02 EDT , Service support ,
== END ==
PROVIDERS: PCP Family Medicine; Referring Provider Family Medicine; Visit Provider Family Medicine
DX: Z12.31 Encounter for screening mammogram for malignant neoplasm of breast (principal)
CPT/HCPCS: 77063; 77067

== ENCOUNTER 2020-07-08 11:20 | Emergency (ER) | payer OTHER, SELFPAY ==
[2020-07-08 11:00] VITALS: BMI 28.3
[2020-07-08 11:21] VITALS: BP 129/91; PULSE 87; RESP 18; TEMP 36.2; O2SAT 100; BMI 27.3
--- NOTE | 2020-07-08 11:45 | CT_ITS ---
STUDY: CT ABDOMEN AND PELVIS WITH CONTRAST REASON FOR EXAM: Female, 55 years old. NAUSEA AND VOMITING. LT UPPER ABDOMINAL PAIN. PRIOR HYSTERECTOMY AND LAMINECTOMY. DELAYED IMAGES DONE RADIATION DOSAGE (If Supplied By Facility): CTDIvol = ( 15.44 ) mGy, DLP = ( 1638.87 ) mGycm TECHNIQUE: Transaxial images were obtained from the dome of the diaphragm to the symphysis pubis without oral contrast. Oral and amp; IV Gastrografin and amp; 100mL Isovue-300 was administered. Sagittal and coronal images were reconstructed. Individualized dose optimization techniques were used for this CT. COMPARISON: None. FINDINGS: The visualized lung bases are unremarkable. The visualized portions of the heart are within normal limits. Normal liver. Normal gallbladder and extrahepatic biliary system. Normal spleen. Normal pancreas. Normal bilateral adrenal glands. Normal right kidney. Normal left kidney. Possible mild wall thickening of the stomach. Normal small intestine. Diffuse fecal retention in the colon. The appendix is not visualized. Normal abdominal aorta. Normal inferior vena cava. Normal retroperitoneum. Normal urinary bladder. Normal abdominal wall. Status post laminectomies at L2 and L4. Slight annular bulge at L2-3 and L3-4. CT/Abdomen/Pelvis WITH Contrast IMPRESSION: Possible gastric wall thickening. Correlation with endoscopy if needed. Colonic fecal retention. Electronically Signed: Orestes Santillan DO at 14:41 EDT Tel [phone], Service support ,
--- NOTE | 2020-07-08 11:48 | ED.DCSUM_ITS ---
- ER Visit Summary Date of Service: 07/08/20 Chief Complaint: Abdominal pain History of Present Illness: The patient is a 55 F who presents with abdominal pain that began last evening. Patient states she had 2 episodes of nausea and vomiting. Patient denies any hematemesis or coffee-ground emesis. Patient states she took some Pepto-Bismol but was unable to keep it down. Patient describes her pain as cramping and squeezing. Patient states pain is over the epigastric and left upper quadrant areas. Patient denies any diarrhea, melena, or hematochezia. Patient denies any dysuria or hematuria. Patient denies any fevers or chills. Physical Examination: Vital signs are stable. Patient is afebrile. Patient is in no acute distress. Neck is supple. Trachea is midline. There is no JVD. Heart was regular rate and rhythm. Lungs are clear and equal bilaterally. Abdomen is soft. Bowel sounds are normal. There is some left upper quadrant tenderness. There is no rebound or guarding noted. Cranial nerves II through XII are intact. There are no focal motor or sensory deficits noted. Extremities are intact. There is no calf tenderness or edema. Test Results: CBC and comprehensive metabolic profile were essentially within normal limits. Lipase was normal. CT scan of the abdomen and pelvis was obtained. There is mild gastric wall thickening. There is large amount of stool throughout the colon. There is no other acute abnormality. This was interpreted by the radiologist and reviewed by myself. Emergency Department Course and Treatment: Patient was given IV fluids, morphine, and Zofran. Patient required an additional dose of Zofran. Patient was feeling better on reevaluation. Patient was advised of her findings. Patient was instructed to follow-up with her primary care physician in 5 to 7 days. Patient was instructed to return if worse in any way. Patient understood and was agreeable with the plan. All questions were answered. Disposition: Discharge home Impression: 1. Abdominal pain 2. Gastritis This note was generated with [employer] software. It may contain incorrect words, spelling, and punctuation that were not noted in review of the chart prior to signing ED Disposition - Plan for ED Patient: Disposition: Home or Assisted Living Diagnosis: Left upper quadrant pain, Gastritis Instructions: ED Gastritis, ED Abdominal Pain Unkn Cause Fem Prescriptions: Ondansetron [Zofran Odt] 4 mg PO Q8H PRN PRN #10 tab PRN Reason: Nausea Transmission Status: Pending to [id number] Referrals: Mode Ramirez DO [Primary Care Provider] - 5-7 Days
[2020-07-08 11:53] LABS: Absolute Lymphocyte Count 0.85 X10^3/uL (0.83-4.51); Absolute Neutrophil Count 2.2 X10^3/uL (2.0-7.7); Basophil# 0.03 X10^3/uL; Basophil% 0.9 % (0-1); Eosinophil# 0.06 X10^3/uL; Eosinophils% 1.7 % (0-5); Hematocrit 43.7 % (37-47); Hemoglobin 13.9 g/dL (12.0-15.0); Lymphocyte # 0.85 X10^3/ul (4.0); Lymphocyte % 24.3 % (19-41); Mean Corp Hgb Conc 31.8 g/dL (32-36); Mean Corpuscular Hgb 29.1 pg (27.0-32.0); Mean Corpuscular Volume 91.4 fL (81-99); Mean Platelet Vol. 9.8 fl (6.2-12.0); Monocyte# 0.41 X10^3/uL; Monocyte% 11.7 % (0-10); NRBC Flagged by Analyzer 0 % (0-5); Neutrophil # 2.15 X10^3/uL (2.7-7.7); Neutrophil % 61.4 % (47-70); Platelet Count 213 K/mm3 (150-450); RBC Distribution Width CV 13.8 % (11.6-14.6); Red Blood Count 4.78 M/mm3 (4.2-5.4); White Blood Count 3.5 K/mm3 (4.4-11.0)
[2020-07-08 12:04] LABS: ALB/GLOB Ratio 1.2 RATIO (0.9-2.4); AST(SGOT) 16 U/L (15-37); Alanine Aminotransfer ALT/SGPT 28 U/L (13-56); Albumin, Serum 4.5 g/dL (3.2-5.0); Alkaline Phosphatase 77 U/L (45-117); Anion Gap 4 (5-15); BUN 13 mg/dL (7-18); Calcium,Total 9.8 mg/dL (8.5-10.1); Chloride 106 mmol/L (98-107); Creatinine, Serum 0.76 mg/dL (0.55-1.02); EST Glomerular Filtration Rate 83 mL/min (>60); Est Glom Filt Rate - Afr Amer 101 mL/min (>60); Estimated Creatinine Clearance 93.48 ml/min; Globulin 3.6 g/dL (2.2-4.2); Glucose 96 mg/dL (74-106); Lipase 71 U/L (73-393); Potassium 3.8 mmol/L (3.5-5.1); Protein, Total 8.1 g/dL (6.4-8.2); Sodium Level 140 mmol/L (136-145)
[2020-07-08] MEDS: 0.9% Normal Saline 1,000 ML 1000 ML IV (12:05)
[2020-07-08] MEDS: Ondansetron 4 MG/2 ML Vial IV ×2 (12:05→15:20)
[2020-07-08] MEDS: Morphine 4 MG/ML Syringe IV (12:06)
[2020-07-08 15:20] VITALS: BP 122/77; PULSE 68; RESP 15; O2SAT 99
[2020-07-08 15:25] VITALS: BP 122/77; PULSE 68; RESP 15; O2SAT 99
== END 2020-07-08 15:26 | disposition home or self-care (01) ==
PROVIDERS: Emergency Provider Emergency Medicine; PCP Family Medicine
DX: K29.70 Gastritis, unspecified, without bleeding (principal)
CPT/HCPCS: 74177; 80053; 83690; 85025; 96361; 96374; 96375; 96376; 99283; J7030; A4216; J2405